=== PATIENT | female | born 1980 | race Native Hawaiian/Other Pacific Islander ===

== ENCOUNTER 2020-07-02 09:46 | Outpatient (CLI) | payer OTHER | END 2020-07-02 19:33 | disposition home or self-care (01) | LOC: MAMMO 09:46 | PROVIDERS: ATTEND Family Medicine | DX: N63.11 Unspecified lump in the right breast, upper outer quadrant (principal) ==

== ENCOUNTER 2020-07-11 08:32 | Outpatient (CLI) | payer OTHER | END 2020-07-11 22:00 | disposition home or self-care (01) | LOC: US 08:32 | PROVIDERS: ATTEND Family Medicine | DX: R92.8 Other abnormal and inconclusive findings on diagnostic imaging of breast (principal) ==

== ENCOUNTER 2020-07-31 12:41 | Outpatient (CLI) | payer OTHER ==
[2020-07-31 12:56] LABS: PLATELET COUNT 271 K/uL (152-353)
== END 2020-07-31 22:22 | disposition home or self-care (01) ==
LOC: LABW 12:41
PROVIDERS: ATTEND Internal Medicine Medical Oncology
DX: C50.411 Malignant neoplasm of upper-outer quadrant of right female breast (principal); D68.59 Other primary thrombophilia
CPT/HCPCS: 36415; 85027

== ENCOUNTER 2020-08-20 15:05 | Outpatient (CLI) | payer OTHER ==
[2020-08-20 15:25] LABS: PLATELET COUNT 292 K/uL (152-353)
[2020-08-20 15:34] LABS: POTASSIUM 3.7 mmol/L (3.6-5.2)
== END 2020-08-20 19:20 | disposition home or self-care (01) ==
LOC: LABW 15:05
PROVIDERS: ATTEND Internal Medicine Medical Oncology
DX: C50.411 Malignant neoplasm of upper-outer quadrant of right female breast (principal)
CPT/HCPCS: 36415; 80053; 85027

== ENCOUNTER 2020-08-29 13:39 | Outpatient (CLI) | payer OTHER ==
[2020-08-29 14:05] LABS: POTASSIUM 3.7 mmol/L (3.6-5.2)
[2020-08-29 14:15] LABS: PLATELET COUNT 178 K/uL (152-353)
== END 2020-08-29 19:12 | disposition home or self-care (01) ==
LOC: LABW 13:39
PROVIDERS: ATTEND Emergency Medicine
DX: C50.411 Malignant neoplasm of upper-outer quadrant of right female breast (principal)
CPT/HCPCS: 36415; 80053; 85007; 85027

== ENCOUNTER 2020-09-04 14:54 | Outpatient (CLI) | payer OTHER ==
[2020-09-04 15:15] LABS: PLATELET COUNT 203 K/uL (152-353)
[2020-09-04 15:27] LABS: POTASSIUM 3.8 mmol/L (3.6-5.2)
== END 2020-09-04 21:05 | disposition home or self-care (01) ==
LOC: LABW 14:54
PROVIDERS: ATTEND Internal Medicine Medical Oncology
DX: C50.411 Malignant neoplasm of upper-outer quadrant of right female breast (principal); D68.59 Other primary thrombophilia
CPT/HCPCS: 36415; 80053; 85027

== ENCOUNTER 2020-09-13 08:25 | Outpatient (CLI) | payer OTHER ==
[2020-09-13 08:39] LABS: PLATELET COUNT 284 K/uL (152-353)
[2020-09-13 08:47] LABS: POTASSIUM 3.9 mmol/L (3.6-5.2)
== END 2020-09-13 22:35 | disposition home or self-care (01) ==
LOC: LABW 08:25
PROVIDERS: ATTEND Internal Medicine Medical Oncology
DX: C50.411 Malignant neoplasm of upper-outer quadrant of right female breast (principal); D68.59 Other primary thrombophilia
CPT/HCPCS: 36415; 80053; 85027

== ENCOUNTER 2020-09-18 08:35 | Outpatient (CLI) | payer OTHER ==
[2020-09-18 09:03] LABS: PLATELET COUNT 245 K/uL (152-353)
[2020-09-18 09:14] LABS: POTASSIUM 3.8 mmol/L (3.6-5.2)
== END 2020-09-18 15:42 | disposition home or self-care (01) ==
LOC: LABW 08:35
PROVIDERS: ATTEND Nurse Practitioner Adult Health
DX: C50.411 Malignant neoplasm of upper-outer quadrant of right female breast (principal); D68.59 Other primary thrombophilia
CPT/HCPCS: 36415; 80053; 85027

== ENCOUNTER 2020-09-26 08:21 | Outpatient (CLI) | payer OTHER ==
[2020-09-26 08:38] LABS: PLATELET COUNT 180 K/uL (152-353)
[2020-09-26 08:43] LABS: POTASSIUM 3.9 mmol/L (3.6-5.2)
== END 2020-09-26 22:33 | disposition home or self-care (01) ==
LOC: LABW 08:21
PROVIDERS: ATTEND Nurse Practitioner Adult Health
DX: C50.411 Malignant neoplasm of upper-outer quadrant of right female breast (principal); D68.59 Other primary thrombophilia
CPT/HCPCS: 36415; 80053; 85027

== ENCOUNTER 2020-10-02 13:34 | Outpatient (CLI) | payer OTHER ==
[2020-10-02 13:45] LABS: PLATELET COUNT 278 K/uL (152-353)
== END 2020-10-02 21:15 | disposition home or self-care (01) ==
LOC: LABW 13:34
PROVIDERS: ATTEND Nurse Practitioner Family
DX: C50.411 Malignant neoplasm of upper-outer quadrant of right female breast (principal); D68.59 Other primary thrombophilia
CPT/HCPCS: 36415; 80053; 85027

== ENCOUNTER 2020-10-11 14:07 | Outpatient (CLI) | payer OTHER ==
[2020-10-11 14:22] LABS: PLATELET COUNT 197 K/uL (152-353)
[2020-10-11 14:45] LABS: POTASSIUM 3.8 mmol/L (3.6-5.2)
== END 2020-10-11 22:05 | disposition home or self-care (01) ==
LOC: LABW 14:07
PROVIDERS: ATTEND Nurse Practitioner Family
DX: C50.411 Malignant neoplasm of upper-outer quadrant of right female breast (principal); D68.59 Other primary thrombophilia
CPT/HCPCS: 36415; 80053; 85027

== ENCOUNTER 2020-10-16 09:09 | Outpatient (CLI) | payer OTHER ==
[2020-10-16 09:57] LABS: PLATELET COUNT 217 K/uL (152-353)
[2020-10-16 09:58] LABS: POTASSIUM 3.3 mmol/L (3.6-5.2)
== END 2020-10-16 23:00 | disposition home or self-care (01) ==
LOC: LABW 09:09
PROVIDERS: ATTEND Nurse Practitioner Family
DX: C50.411 Malignant neoplasm of upper-outer quadrant of right female breast (principal); D68.59 Other primary thrombophilia
CPT/HCPCS: 36415; 80053; 85027

== ENCOUNTER 2020-10-23 14:55 | Outpatient (CLI) | payer OTHER ==
[2020-10-23 15:14] LABS: PLATELET COUNT 226 K/uL (152-353)
[2020-10-23 15:22] LABS: POTASSIUM 3.9 mmol/L (3.6-5.2)
== END 2020-10-23 20:39 | disposition home or self-care (01) ==
LOC: LABW 14:55
PROVIDERS: ATTEND Internal Medicine Medical Oncology
DX: C50.411 Malignant neoplasm of upper-outer quadrant of right female breast (principal); D68.59 Other primary thrombophilia
CPT/HCPCS: 36415; 80053; 85027

== ENCOUNTER → 2020-10-30 | Outpatient (CLI) | payer OTHER ==
[2020-10-30 09:57] LABS: PLATELET COUNT 140 K/uL (152-353)
[2020-10-30 10:08] LABS: POTASSIUM 3.6 mmol/L (3.6-5.2)
== END ==
LOC: LABW 09:47
PROVIDERS: ATTEND Internal Medicine Medical Oncology
DX: C50.411 Malignant neoplasm of upper-outer quadrant of right female breast (principal); D68.59 Other primary thrombophilia
CPT/HCPCS: 36415; 80053; 85027

== ENCOUNTER 2020-11-06 12:53 | Outpatient (CLI) | payer OTHER ==
[2020-11-06 13:21] LABS: PLATELET COUNT 40 K/uL (152-353)
== END 2020-11-06 20:38 | disposition home or self-care (01) ==
LOC: LABW 12:53
PROVIDERS: ATTEND Internal Medicine Medical Oncology
DX: R53.83 Other fatigue (principal); C50.411 Malignant neoplasm of upper-outer quadrant of right female breast; D68.59 Other primary thrombophilia
CPT/HCPCS: 36415; 80053; 85027

== ENCOUNTER 2020-11-13 13:35 | Outpatient (CLI) | payer OTHER ==
[2020-11-13 13:48] LABS: PLATELET COUNT 122 K/uL (152-353)
[2020-11-13 13:57] LABS: POTASSIUM 3.7 mmol/L (3.6-5.2)
== END 2020-11-13 19:05 | disposition home or self-care (01) ==
LOC: LABW 13:35
PROVIDERS: ATTEND Internal Medicine Medical Oncology
DX: C50.411 Malignant neoplasm of upper-outer quadrant of right female breast (principal); R53.83 Other fatigue; D68.59 Other primary thrombophilia
CPT/HCPCS: 36415; 80053; 85027

== ENCOUNTER 2020-11-20 09:09 | Outpatient (CLI) | payer OTHER ==
[2020-11-20 09:32] LABS: PLATELET COUNT 437 K/uL (152-353)
[2020-11-20 11:28] LABS: POTASSIUM 3.8 mmol/L (3.6-5.2)
== END 2020-11-20 19:21 | disposition home or self-care (01) ==
LOC: LABW 09:09
PROVIDERS: ATTEND Internal Medicine Medical Oncology
DX: C50.411 Malignant neoplasm of upper-outer quadrant of right female breast (principal); R53.83 Other fatigue; D68.59 Other primary thrombophilia
CPT/HCPCS: 36415; 80053; 85027

== ENCOUNTER 2020-11-27 12:26 | Outpatient (CLI) | payer OTHER ==
[2020-11-27 13:12] LABS: POTASSIUM 3.8 mmol/L (3.6-5.2)
[2020-11-27 13:23] LABS: PLATELET COUNT 316 K/uL (152-353)
== END 2020-11-27 20:08 | disposition home or self-care (01) ==
LOC: LABW 12:26
PROVIDERS: ATTEND Internal Medicine Medical Oncology
DX: R53.83 Other fatigue (principal); C50.411 Malignant neoplasm of upper-outer quadrant of right female breast; D68.59 Other primary thrombophilia
CPT/HCPCS: 36415; 80053; 85027

== ENCOUNTER 2020-12-04 10:17 | Outpatient (CLI) | payer OTHER ==
[2020-12-04 10:33] LABS: PLATELET COUNT 186 K/uL (152-353)
[2020-12-04 11:06] LABS: POTASSIUM 3.8 mmol/L (3.6-5.2)
== END 2020-12-04 21:51 | disposition home or self-care (01) ==
LOC: LABW 10:17
PROVIDERS: ATTEND Internal Medicine Medical Oncology
DX: R53.83 Other fatigue (principal); C50.411 Malignant neoplasm of upper-outer quadrant of right female breast; D68.59 Other primary thrombophilia
CPT/HCPCS: 36415; 80053; 85027

== ENCOUNTER 2020-12-11 12:35 | Outpatient (CLI) | payer OTHER ==
[2020-12-11 12:53] LABS: PLATELET COUNT 150 K/uL (152-353)
[2020-12-11 13:24] LABS: POTASSIUM 3.9 mmol/L (3.6-5.2)
== END 2020-12-11 19:18 | disposition home or self-care (01) ==
LOC: LABW 12:35
PROVIDERS: ATTEND Internal Medicine Medical Oncology
DX: R53.83 Other fatigue (principal); C50.411 Malignant neoplasm of upper-outer quadrant of right female breast; D68.59 Other primary thrombophilia
CPT/HCPCS: 36415; 80053; 85027

== ENCOUNTER 2020-12-18 08:06 | Outpatient (CLI) | payer OTHER ==
[2020-12-18 08:17] LABS: PLATELET COUNT 234 K/uL (152-353)
== END 2020-12-18 22:34 | disposition home or self-care (01) ==
LOC: LABW 08:06
PROVIDERS: ATTEND Internal Medicine Medical Oncology
DX: R53.83 Other fatigue (principal); C50.411 Malignant neoplasm of upper-outer quadrant of right female breast; D68.59 Other primary thrombophilia
CPT/HCPCS: 80053; 85027

== ENCOUNTER 2020-12-25 12:42 | Outpatient (CLI) | payer OTHER ==
[2020-12-25 13:00] LABS: PLATELET COUNT 197 K/uL (152-353)
[2020-12-25 13:14] LABS: POTASSIUM 3.8 mmol/L (3.6-5.2)
== END 2020-12-25 20:44 | disposition home or self-care (01) ==
LOC: LABW 12:42
PROVIDERS: ATTEND Internal Medicine Medical Oncology
DX: R53.83 Other fatigue (principal); C50.411 Malignant neoplasm of upper-outer quadrant of right female breast; G47.09 Other insomnia; G62.0 Drug-induced polyneuropathy; D68.59 Other primary thrombophilia
CPT/HCPCS: 36415; 80053; 85027

== ENCOUNTER 2020-12-31 12:29 | Outpatient (CLI) | payer OTHER ==
[2020-12-31 13:03] LABS: PLATELET COUNT 159 K/uL (152-353)
== END 2020-12-31 20:24 | disposition home or self-care (01) ==
LOC: LABW 12:29
PROVIDERS: ATTEND Internal Medicine Medical Oncology
DX: R53.83 Other fatigue (principal); C50.411 Malignant neoplasm of upper-outer quadrant of right female breast; G47.09 Other insomnia; G62.0 Drug-induced polyneuropathy; D68.59 Other primary thrombophilia
CPT/HCPCS: 36415; 80053; 85008; 85027

== ENCOUNTER 2021-01-07 13:41 | Outpatient (CLI) | payer OTHER ==
[2021-01-07 13:52] LABS: PLATELET COUNT 171 K/uL (152-353)
[2021-01-07 14:16] LABS: POTASSIUM 3.9 mmol/L (3.6-5.2)
== END 2021-01-07 19:00 | disposition home or self-care (01) ==
LOC: LABW 13:41
PROVIDERS: ATTEND Internal Medicine Medical Oncology
DX: R53.83 Other fatigue (principal); C50.411 Malignant neoplasm of upper-outer quadrant of right female breast; G47.09 Other insomnia; G62.0 Drug-induced polyneuropathy; D68.59 Other primary thrombophilia
CPT/HCPCS: 36415; 80053; 85008; 85027

== ENCOUNTER 2021-01-13 13:27 | Outpatient (CLI) | payer OTHER ==
[2021-01-13 13:41] LABS: PLATELET COUNT 130 K/uL (152-353)
[2021-01-13 13:54] LABS: POTASSIUM 3.7 mmol/L (3.6-5.2)
== END 2021-01-13 21:03 | disposition home or self-care (01) ==
LOC: LABW 13:27
PROVIDERS: ATTEND Internal Medicine Medical Oncology
DX: R53.83 Other fatigue (principal); C50.411 Malignant neoplasm of upper-outer quadrant of right female breast; G47.09 Other insomnia; G62.0 Drug-induced polyneuropathy; D68.59 Other primary thrombophilia
CPT/HCPCS: 36415; 80053; 85027

== ENCOUNTER 2021-03-06 09:45 | Outpatient (CLI) | payer OTHER ==
[2021-03-06 10:30] LABS: PLATELET COUNT 355 K/uL (152-353)
[2021-03-06 10:45] LABS: POTASSIUM 3.9 mmol/L (3.6-5.2)
== END 2021-03-06 19:01 | disposition home or self-care (01) ==
LOC: LABW 09:45
PROVIDERS: ATTEND Nurse Practitioner
DX: R53.83 Other fatigue (principal); C50.411 Malignant neoplasm of upper-outer quadrant of right female breast; G47.09 Other insomnia; G62.0 Drug-induced polyneuropathy; D68.59 Other primary thrombophilia
CPT/HCPCS: 36415; 80053; 85027

== ENCOUNTER 2021-05-06 08:44 | Outpatient (CLI) | payer OTHER ==
[2021-05-06 09:22] LABS: PLATELET COUNT 258 K/uL (152-353)
[2021-05-06 10:51] LABS: POTASSIUM 4.5 mmol/L (3.6-5.2)
== END 2021-05-06 19:06 | disposition home or self-care (01) ==
LOC: LABW 08:44
PROVIDERS: ATTEND Internal Medicine Medical Oncology
DX: C50.411 Malignant neoplasm of upper-outer quadrant of right female breast (principal); R53.83 Other fatigue; D68.59 Other primary thrombophilia; G47.09 Other insomnia; G62.0 Drug-induced polyneuropathy
CPT/HCPCS: 36415; 80053; 85027

== ENCOUNTER 2022-03-20 19:11 | Emergency (ER) | payer OTHER ==
[~2022-03-20] VITALS: Ht 152.4 cm; Wt 67.1 kg
[2022-03-20 19:17] VITALS: BP 141/86; TEMP 98
[2022-03-20 20:11] LABS: PLATELET COUNT 275 K/uL (152-353)
[2022-03-20 20:21] LABS: POTASSIUM 3.6 mmol/L (3.6-5.2)
== END 2022-03-20 21:35 | disposition home or self-care (01) ==
LOC: ED 19:11
PROVIDERS: Family Medicine
DX: R11.2 Nausea with vomiting, unspecified (principal); N28.89 Other specified disorders of kidney and ureter; R14.3 Flatulence
CPT/HCPCS: 36415; 80053; 80307; 81002; 82150; 83605; 83690; 85027; 87040; 96361; 96374; 99284; J2405